=== PATIENT | female | born 1985 | race Caucasian/White ===

== ENCOUNTER 2017-12-12 22:19 | Emergency (ER) | payer SELFPAY ==
[2017-12-12] MEDS ORDERED: Ibuprofen 200 MG TAB ONE (22:41)
== END 2017-12-12 22:48 | disposition home or self-care (01) ==
LOC: NAV ERS 22:19
DX: H60.21 Malignant otitis externa, right ear (principal); F41.9 Anxiety disorder, unspecified; F32.9 Major depressive disorder, single episode, unspecified; F17.210 Nicotine dependence, cigarettes, uncomplicated
CPT/HCPCS: 99282